=== PATIENT | female | born 1980 | race Two or more races ===

== ENCOUNTER 2025-04-22 08:37 | Outpatient (AMB) | payer OTHER, SELFPAY ==
[2025-04-22 08:55] VITALS: BP 110/67; PULSE 72; TEMP 36.8; O2SAT 98
--- NOTE | 2025-04-22 08:55 | GYNCLNT_ITS ---
Vital Signs 04/22/25 08:55 Height 1.68 m Height Method Stated Weight 84.538 kg Weight Measurement Method Standing Scale BMI 30.0 BP 110/67 Blood Pressure Source Automatic Cuff Blood Pressure Location Right Upper Arm Position Sitting Pulse 72 Pulse Source Monitor Temp 98.2 F Temp Source Temporal Artery Scan Pulse Oximetry (%) 98 Oxygen Delivery Method Room Air Allergies/Home Meds Allergies & Medications Allergies iodine Allergy (Unknown, Verified 04/22/25 08:56) Medication Reconciliation cholecalciferol (vitamin D3) 1,250 mcg (50,000 unit) capsule 1,250 mcg PO QWEEK 12 weeks #12 caps 03/21/24 [Rx Confirmed 04/22/25] Intake Visit Data Collection New Patient or Established: Established Patient (seen at [facility] within 3 years) Reason for Visit:: IRREGULAR MENSES Seen by Clinical Staff ONLY (RN/MA): No Occupational Therapy Program Director Required: No Do You Feel Safe at Home: Yes Authorities Contacted: N/A PCP or OBGYN visit in last 3 months: No Hx Now: No Are you currently on any form of Control: No Last menstrual period: 03/19/25 Pain Present Currently: No Pain Scale Used: Mahoney-Gardner/Numerical Pain scale:: 0 Smoking Status Smoking Status: Never smoker 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 Questionnaires Covid-19 Vaccine Questionnaire Has patient been vacinated for Covid-19 Have you been vacinated for Covid-19: Yes PHQ-9 PHQ-2 Over the last 2 weeks, how often have you been bothered by any of the following problems? 1. Little interest or pleasure in doing things: not at all 2. Feeling down, depressed, or hopeless: not at all Total score: 0 PHQ-9 3. Trouble falling or staying asleep, or sleeping too much: Not at all 4. Feeling tired or having little energy: Not at all 5. Poor appetite or overeating: Not at all 6. Feeling bad about yourself - or that you are a failure or have let yourself or your family down: Not at all 7. Trouble concentrating on things, such as reading the newspaper or watching television: Not at all 8. Moving or speaking so slowly that other people could have noticed? - Or the opposite - being so fidgety or restless that you have been moving around a lot more than usual: not at all 9. Thoughts that you would be better off or of hurting yourself in some way: Not at all Total score: 0 If you checked off any problems, how difficult have these problems made it for you to do your work, take care of things at home, or get along with other people?: not difficult at all Source: Developed by Drs. Figueroa Shrestha, Keiry Kirby, Jan Mcgee and colleagues, with an educational thomas from [employer]. Depression screen completed yes Social History Living Situation History Marital Status: Lives With: Family Housing: House Housing Other:: Has 3 girls age 25, 22, 15, and 13. Has 1 son age 20. 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 Tobacco History Smoking Status: Never smoker Second Hand Smoke Exposure: No Alcohol History Alcohol Intake: Current Alcohol Intake Frequency: holidays/special occasions only Substance Use History Substance Use: NONE Domestic Abuse History Do You Feel Safe at Home: Yes History of Present Illness HPI Narrative Patient is a very pleasant 44-year-old -0-0-[address] Rush Tyler in [place] for her gynecological care. She comes to me discussing irregular menses. She states she is having some hot flashes and night sweats she states her cycles can be 9 to 10 days long and, every [address] Tyler performed an ultrasound last year in 2023 and was going to perform an ablation when our office closed. She presents today to discuss options. She has had 5 vaginal deliveries and a tubal ligation in 2011. She has 4 girls and 1 boy. Her oldest daughter is 25 then she has a 22-year-old daughter 20-year-old son a 15-year-old daughter and the youngest is a 13-year-old daughter. 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 We did discuss abnormal bleeding. I would recommend an ultrasound and some lab work. She did bring some labs in with her that her primary care provider mary revealing a normal thyroid , a hemoglobin a little low at 10.4. HIV is negative GC chlamydia negative and the TSH was no normal .We did discuss options for dysfunctional uterine bleeding including low-dose control pills, an IUD or a NovaSure ablation. I told the patient an IUD would not be a bad option for her as she could be starting to become perimenopausal and if so the IUD can stay in place for up to 8 years and we could just replace estrogen. Patient was not aware this was an option for her and is leaning towards placement of a Mirena IUD. Review of Systems Review of Systems Narrative Review of Systems: Occasional hot flashes and night sweats. Abnormal uterine bleeding as above. No foul discharge. No pelvic pain no dyspareunia no urinary complaints last Pap was 2023 no history of abnormal Pap smears Exam General Limitations: no limitations General Appearance: alert, in no apparent distress, comfortable, cooperative, healthy appearing, well developed and well groomed Chest Chest inspection: Present normal inspection and symmetric chest wall rise Resp Respiratory exam: Present normal lung sounds bilaterally Card Cardiovascular exam: Present regular rate, normal rhythm and normal heart sounds Abdominal Abdominal exam: Present soft and normal bowel sounds Psych Psychiatric exam: Present normal affect and normal mood Skin Skin exam: Present warm, dry, intact and normal color Office Procedures OB Clinic LOC & Office Proc's Nursing/Assessment Patient Status: Established Patient OB Clinic Nursing Assessment: Medication Reconciliation, Update PMH in EMR and Vital Signs OB Clinic Coordination of Care: Complex Care and Chronic Disease 1-5, Consent,records obtained, informed consent, Education Simp Pt/Fam and Staff clarify orders Established Patient Charge Established Patient Point Assignment: 85 Established Patient Point Charge: EP Level 3 (80-115) Assessment & Plan Diagnosis / Problem List (1) DUB (dysfunctional uterine bleeding): Status: Acute Assessment and Plan: Check ultrasound. Check FSH and estradiol. Patient is interested in on a Mirena IUD. Will order Mirena IUD and call the patient for placement. (2) Anemia: Status: Acute Qualifiers: Anemia type: iron deficiency Iron deficiency anemia type: chronic blood loss Qualified Code(s): D50.0 - Iron deficiency anemia secondary to blood loss (chronic) Assessment and Plan: Patient is already taking iron replacement. She has heavy cycles. Once the IUD is in place they should lighten up and the problem should resolve. (3) Perimenopausal menorrhagia: Status: Acute Assessment and Plan: Patient is having hot flashes and night sweats and I ordered FSH and estradiol levels.
== END 2025-04-22 09:50 | disposition home or self-care (01) ==
LOC: HODSOBC 08:37
PROVIDERS: PCP Obstetrics & Gynecology; Referring Provider Obstetrics & Gynecology; Supervising Provider Obstetrics & Gynecology; Visit Provider Obstetrics & Gynecology
DX: N93.8 Other specified abnormal uterine and vaginal bleeding (principal); D64.9 Anemia, unspecified; N92.4 Excessive bleeding in the premenopausal period; R23.2 Flushing; R61 Generalized hyperhidrosis; Z98.51 Tubal ligation status
CPT/HCPCS: 99213; G0463

== ENCOUNTER → 2025-05-05 | Outpatient (CLI) | payer OTHER, SELFPAY ==
--- NOTE | 2025-05-05 12:00 | XR_ITS ---
Examination: Transvaginal ultrasound of the pelvis, complete Technique: Transvaginal sonographic images pelvis performed using nash scale imaging Exam date and time: May 05, 2025 1204 hours INDICATIONS: Heavy irregular vaginal bleeding beginning one year ago FINDINGS: Uterus 10.3 cm endometrial stripe 1.0 cm No uterine mass or intrauterine gestation Right ovary obscured by bowel gas Left ovary 3.7 cm arterial flow 15 mm follicular cyst IMPRESSION: No uterine mass or intrauterine gestation.
== END | disposition home or self-care (01) ==
LOC: CDIM 11:42
PROVIDERS: PCP Nurse Practitioner Family; Referring Provider Obstetrics & Gynecology; Visit Provider Obstetrics & Gynecology
DX: N83.02 Follicular cyst of left ovary (principal)
CPT/HCPCS: 76830

== ENCOUNTER 2025-05-26 09:49 | Emergency (ER) | payer OTHER, SELFPAY ==
[2025-05-26 09:50] VITALS: BMI 29.3
[2025-05-26 09:58] VITALS: BP 133/64; PULSE 82; RESP 20; TEMP 36.4; O2SAT 100
[2025-05-26] MEDS: KETOROLAC INJ 30 MG/ML VIAL 15 MG IVP (10:07)
[2025-05-26 10:16] LABS: Basophils # (Auto) 0.1 Thou/mm3 (0.0-0.2); Basophils % (Auto) 1 % (0-2.5); Eosinophils # (Auto) 0.4 Thou/mm3 (0.0-0.5); Eosinophils % (Auto) 3 % (0-10); Hematocrit 37.4 % (36.0-46.0); Hemoglobin 12.6 g/dL (12.0-16.0); Immature Granulocytes Auto 0.05 Thou/mm3 (0.00-0.00); Lymphocytes # (Auto) 2.9 Thou/mm3 (1.0-4.8); Lymphocytes % (Auto) 24 % (10-50); Mean Corpuscular HGB Conc 33.7 g/dl (31.0-37.0); Mean Corpuscular Hemoglobin 28.4 pg (25.0-35.0); Mean Corpuscular Volume 84 fL (80-100); Monocytes # (Auto) 1.1 Thou/mm3 (0.0-0.8); Monocytes % (Auto) 10 % (0-12); Neutrophils # (Auto) 7.3 Thou/mm3 (1.8-7.7); Neutrophils % (Auto) 62 % (37-80); Nucleated Red Blood Cell # 0.00 Thou/mm3 (0.00-0.00); Nucleated Red Blood Cell % 0 /100 WBC (0); Platelet Count 351 Thou/mm3 (140-440); RDW Standard Deviation 59.7 fL (36.4-46.3); Red Blood Count 4.44 Miln/mm3 (4.00-5.20); White Blood Count 11.9 Thou/mm3 (3.6-11.0)
--- NOTE | 2025-05-26 10:21 | EDNOTE_ITS ---
ED General RME/HPI General Chief complaint: Abdominal Pain Stated complaint: ABD PAIN; 08/21 Time Seen by Provider: 05/26/25 11:47 Arrival date/time: 05/26/25 09:49 RME / HPI RME / HPI narrative: see MDM Related Data Previous Rx's ?Medication ?Instructions ?Recorded cholecalciferol (vitamin D3) 1,250 1,250 mcg PO QWEEK 12 weeks #12 03/21/24 mcg (50,000 unit) capsule caps Allergies Allergy/AdvReac Type Severity Reaction Status Date / Time iodine Allergy Severe Anaphylaxis Verified 05/26/25 09:52 Review of Systems Review of Systems Systems Reviewed: All systems reviewed, normal except as documented ED Exam Narrative Physical exam: Physical Exam GENERAL: NAD, AAOx3 HEENT: Moist mucosa. Eyes open, symmetrical, & clear CARDIO: Heart RRR, no obvious murmurs PULM: No noted coughing/dyspnea CTA B/L, no R/W/R GI: Abdomen soft, nondistended, epigastric pain on palpation. BSx4 SKIN/MSK/EXT: No wounds/rashes/edema/amputations, no pain on palpation. Pedal pulses present B/L NEURO: AAOx3, no focal neuro deficits, able to move all 4 extremities Course Quality Measures none Orders Category Date Time Status Insert IV NOW Care 05/26/25 09:[address] abdomen pelvis wo con Stat Exams 05/26/25 10:23 Completed US pelvic complete Stat Exams 05/26/25 11:11 Completed CA 125 Stat Lab 05/26/25 12:28 Completed CA 19-9 Antigen* Stat Lab 05/26/25 12:28 Received CBC Stat Lab 05/26/25 10:04 Completed Comprehensive Metabolic Panel Stat Lab 05/26/25 10:04 Completed HCG Qualitative,Urine Stat Lab 05/26/25 12:20 Completed HCG,Qualitative Serum Stat Lab 05/26/25 10:04 Completed Lipase Stat Lab 05/26/25 10:04 Completed UA, C/S IF [Urinalysis, C/S if Indicated] Stat Lab 05/26/25 12:20 Completed Ketorolac Inj [Toradol Inj] Med 05/26/25 09:57 Discontinued 15 mg IVP X1 ONE Ondansetron Inj [Zofran Inj] Med 05/26/25 10:23 Discontinued 4 mg IVP Q4HR PRN Vital Signs Vital signs: Vital Signs Temperature 97.5 F 05/26/25 09:58 Pulse Rate 82 05/26/25 09:58 Respiratory Rate 20 05/26/25 09:58 Blood Pressure 133/64 H 05/26/25 09:58 Pulse Oximetry (%) 100 05/26/25 09:58 Oxygen Delivery Method Room Air 05/26/25 09:58 Discharge Plan Plan Patient Disposition: HOME (Self Care) Prescriptions/Referrals Prescriptions/Med Rec: No Action cholecalciferol (vitamin D3) 1,250 mcg (50,000 unit) capsule 1,250 mcg PO QWEEK 84 Days Qty: 12 1RF Referrals: Debi Aggarwal FNP [Primary Care Provider] - In 1 week Problem List Clinical Impression: Ovarian cyst rupture Patient/Caregiver Discharge Instructions Additional Instructions: Follow up with primary care physician within 1 week of discharge in regards to your CA 19?9, CA125 Follow up with CERTIFIED OPHTHALMIC TECHNOLOGIST within 2 weeks of discharge with regards to your ovarian cyst and ahve possible transvaginal US Should any symptoms recur or worsen patient is instructed to return to the ED. Print Language: Setswana Stand Alone Forms: [employer] Award Info., Patient Portal Info Letter MDM Narrative MDM hospital course: 44 y/o F with PMHx of menorrhagia, cholecystectomy, tubal ligation presented to the ED due to sudden onset abdominal pain. Patient states she was working out and suddenly developed 10/10 pain. She states shes had previous symptoms like this before and was told she had twisted bowels in the past. Last BM was 05/25/2025. Today she also endorses nausea but no vomiting as well as chills. Denies fever, shortness of breath, chest pain, palpitations. 1047: CBC shows mild leukocytosis, CMP unremarkable except for mild AST elevation, CT shows free fluid in the abdomen likely secondary to ovarian cyst, pelvic ultrasound showed ruptured ovarian cyst Patient symptoms have resolved. Patient at this time is safe to be discharged from the ER with strict return precautions. Patient instructed to follow-up with her primary care physician within 1 week of discharge. Patient instructed to follow-up with her CERTIFIED OPHTHALMIC TECHNOLOGIST in regards to her ovarian cyst. Should any symptoms recur or worsen patient is instructed to return to the ER. Clinical Information Provided by patient and EMS Medical Records Reviewed [facility] Chronic Illness/Social Conditions which may negatively complicate care or outcome(s)-explain: None or not applicable Medication Administration(s) Medication Administration History Discontinued Medications Ketorolac Tromethamine (Ketorolac Inj 30 Mg/Ml Vial) 15 mg IVP X1 ONE Stop: 05/26/25 09:58 Last Admin: 05/26/25 10:07 Dose: 15 mg Documented By: AMANDA Ondansetron HCl (Ondansetron Inj 2 Mg/Ml Inj 2 Ml) 4 mg IVP Q4HR PRN; Protocol PRN Reason: NAUSEA OR VOMITING Stop: 06/25/25 10:22
--- NOTE | 2025-05-26 10:23 | XR_ITS ---
Examination: CT abdomen and pelvis without contrast. Coronal 3-D reconstructions. Sagittal 2-D reconstructions. Date and time of exam:May 26, 2025 1040 hours INDICATIONS: Generalized abdominal pain today, history bowel obstruction CTDI: vol (mGy): 10.6 DLP: (mGycm): 604 Technique: Axial images of the abdomen have been obtained, 3 mm slice thickness Intravenous contrast material has not been administered. Low dose protocols were performed. One or more of the following dose reduction techniques were used; automated exposure control, adjustment of the mA and/or KV according to patient size, use of iterative reconstruction technique. Findings: No focal liver or splenic lesion Absent gallbladder No pancreatic mass. No renal or ureteral calculi, no hydronephrosis Normal appendix Minimal fluid adjacent to the cecum which is probably around the right ovary The right ovary is prominent with possible 25 mm right ovarian follicular cyst There is mild to moderate free fluid in the pelvis No uterine mass Bladder intact Moderate disc narrowing L5-S1 IMPRESSION: No renal or ureteral calculi, no hydronephrosis No bowel obstruction Normal appendix Enlarged right ovary with possible 25 mm right ovarian follicular cyst, mild to moderate free fluid in the pelvis, recommend pelvic sonography follow-up
[2025-05-26 10:30] LABS: Alanine Aminotransferase 31 U/L (10-49); Albumin, Serum 4.7 gm/dL (3.5-5.0); Albumin/Globulin Ratio 1.9 (1.2-2.2); Alkaline Phosphatase 60 U/L (46-116); Anion Gap 11 (7-16); Aspartate Amino Transferase 37 U/L (0-34); BUN/Creatinine Ratio 18 Ratio (12-20); Bilirubin,Total 0.7 mg/dL (0.3-1.2); Blood Urea Nitrogen 18 mg/dL (9-23); Calcium 9.9 mg/dL (8.3-10.6); Calcium (Corrected) 9.9 mg/dL (8.5-10.1); Carbon Dioxide 25.2 mMol/L (20.0-31.0); Chloride 102 mMol/L (98-107); Creatinine (Component) 1.0 mg/dL (0.6-1.3); Estimated Creatinine Clearance 79.4 mL/min (>60); Globulin 2.5 gm/dL (2.3-3.5); Glucose 102 mg/dL (74-106); Lipase 31 U/L (12-53); Osmolality,Calculated 277 (275-295); Potassium 3.9 mMol/L (3.4-5.1); Sodium 138 mMol/L (136-145); Total Protein 7.2 gm/dL (5.7-8.2); eGFR > 60 See Note
[2025-05-26 10:56] LABS: HCG,Qualitative Serum Negative
--- NOTE | 2025-05-26 11:11 | XR_ITS ---
Examination: Pelvic ultrasound, transabdominal, complete Technique: Transabdominal ultrasound of the pelvis performed using grayscale imaging Date and time of exam: May 26, 2025 1143 hours Comparison May 05, 2025 INDICATIONS: Pelvic pain today, enlarged right ovary with [address] pelvis study today FINDINGS: Uterus 8.7 cm endometrial stripe 1.1 cm No uterine mass or intrauterine gestation Right ovary 4.1 cm arterial flow Vascular right ovarian mass 2.9 x 2.9 x 2.1 cm which may represent a ruptured cyst Adjacent right ovarian cyst 2.0 x 1.0 x 1.7 cm Left ovary 3.0 cm arterial flow IMPRESSION: Findings most consistent with right ovarian ruptured cyst 2.9 x 2.9 x 2.1 cm, differential would include ectopic in the appropriate clinical setting Recommend one week follow-up transvaginal transabdominal pelvic sonography
[2025-05-26 12:09] VITALS: BP 124/62; PULSE 70; RESP 20; TEMP 36.6; O2SAT 100
[2025-05-26 12:39] LABS: Collection Type, Urine Clean Catch
[2025-05-26 13:26] LABS: HCG Qualitative,Urine Negative
[2025-05-26 13:27] LABS: CA 125 9.0 U/mL (<30.2)
[2025-05-26 13:37] LABS: Bacteria,Urine Rare; Bilirubin,Urine Negative (Negative); Blood,Urine Negative (Negative); Clarity,Urine Clear (Clear/Hazy); Color,Urine Colorless (Lt Yel-Yel); Culture Indicated,Urine Not Indicated; Glucose, Urine Negative (Negative); Ketones,Urine Negative (Negative); Leukocyte Esterase,Urine Negative (Negative); Nitrite,Urine Negative (Negative); PH,Urine 7.0 (5.0-7.0); Protein,Urine Negative (Neg - Trace); RBC,Urine 1 /hpf (0-3); Specific Gravity,Urine 1.011 (1.001-1.035); Squamous Epithelial Cell,Urine 1 /hpf (0-5); Urobilinogen,Urine Negative mg/dL (0.0-1.0); WBC,Urine < 1 /hpf (0-5)
[2025-06-01 08:13] LABS: CA 19-9 Antigen* 6 U/mL (<34)
== END 2025-05-26 14:56 | disposition home or self-care (01) ==
PROVIDERS: Nurse Practitioner Primary Care; Emergency Provider Student in an Organized Health Care Education/Training Program; PCP Nurse Practitioner Family
DX: N83.01 Follicular cyst of right ovary (principal)
CPT/HCPCS: 36415; 74176; 76856; 80053; 81001; 81025; 83690; 84703; 85025; 86301; 86304; 96374; 99284; J1885

== ENCOUNTER → 2025-05-28 | Outpatient (CLI) | payer OTHER, SELFPAY ==
--- NOTE | 2025-05-28 16:00 | XR_ITS ---
Examination: MRI pelvis with intravenous contrast. MRI pelvis without intravenous contrast. Date and time of exam: May 28, 2025 1949 hours INDICATIONS: Onset pelvic pain this week, ruptured right ovarian cyst 2.9 x 2.9 x 2.1 cm on pelvic sonogram May 26, 2025 Technique: Multiple axial, sagittal and coronal sections of the pelvis obtained. Transverse images, TR 6020, TE 107. T1 weighted transverse images, TR 582, TE 9.5. T2-weighted sagittal images, TR 4000, TE 105. T2-weighted sagittal images, TR 4000, TE 5. Coronal images, TR 4210, TE 107. Axial and coronal images are obtained post 16 cc intravenous injection, gadolinium. Findings: Anteverted uterus, 10 x 5.4 x 5.2 cm Endometrial stripe 10 mm Uterine fundal mass nonenhancing 19 x 12 mm Benign cervical cysts Right ovary 2.0 x 1.8 cm, free fluid adjacent to the right ovary and in the cul-de-sac Left ovary 2.8 x 2.2 cm No pelvic lymphadenopathy Homogeneous marrow signal IMPRESSION: Nonenhancing uterine fundal mass 19 x 12 mm, likely fibroid degeneration, recommend 6 month follow up transvaginal pelvic sonography Free fluid adjacent to the right ovary and in the cul-de-sac, mild, consistent with the patient's history of right ruptured ovarian cyst No current ovarian cyst
== END | disposition home or self-care (01) ==
PROVIDERS: PCP Obstetrics & Gynecology; Referring Provider Obstetrics & Gynecology; Visit Provider Obstetrics & Gynecology
DX: N83.8 Other noninflammatory disorders of ovary, fallopian tube and broad ligament (principal)
CPT/HCPCS: 72197; A9579

== ENCOUNTER 2025-06-08 14:47 | Outpatient (AMB) | payer OTHER, SELFPAY ==
[2025-06-08 15:13] VITALS: BP 109/65; PULSE 60; RESP 14; TEMP 36.8; O2SAT 98; BMI 29.7
--- NOTE | 2025-06-08 15:13 | GYNCLNT_ITS ---
Vital Signs 06/08/25 15:13 Height 1.68 m Height Method Stated Weight 83.631 kg Weight Measurement Method Standing Scale BMI 29.7 BP 109/65 Blood Pressure Source Automatic Cuff Blood Pressure Location Left Upper Arm Position Sitting Respiration 14 Pulse 60 Pulse Source Monitor Temp 98.3 F Temp Source Oral Pulse Oximetry (%) 98 Oxygen Delivery Method Room Air Allergies/Home Meds Allergies & Medications Allergies iodine Allergy (Severe, Verified 06/08/25 15:14) Anaphylaxis Intake Visit Data Collection New Patient or Established: Established Patient (seen at [facility] within 3 years) Reason for Visit:: IUD INSERTION Seen by Clinical Staff ONLY (RN/MA): No Automation Operator Required: No Do You Feel Safe at Home: Yes Authorities Contacted: N/A PCP or OBGYN visit in last 3 months: Yes Hx Now: No Are you currently on any form of Control: No Last menstrual period: 06/01/25 Pain Present Currently: No Pain Scale Used: Mahoney-Gardner/Numerical Pain scale:: 0 Smoking Status Smoking Status: Never smoker 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 1. Little interest or pleasure in doing things: not at all 2. Feeling down, depressed, or hopeless: not at all Total score: 0 PHQ-9 3. Trouble falling or staying asleep, or sleeping too much: Not at all 4. Feeling tired or having little energy: Not at all 5. Poor appetite or overeating: Not at all 6. Feeling bad about yourself - or that you are a failure or have let yourself or your family down: Not at all 7. Trouble concentrating on things, such as reading the newspaper or watching television: Not at all 8. Moving or speaking so slowly that other people could have noticed? - Or the opposite - being so fidgety or restless that you have been moving around a lot more than usual: not at all 9. Thoughts that you would be better off or of hurting yourself in some way: Not at all Total score: 0 Source: Developed by Drs. Figueroa Shrestha, Keiry Kirby, Jan Mcgee and colleagues, with an educational thomas from [employer]. Depression screen completed yes Social History Living Situation History Lives With: Family Housing: House Housing Other:: Has 3 girls age 25, 22, 15, and 13. Has 1 son age 20. 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 Tobacco History Smoking Status: Never smoker Second Hand Smoke Exposure: No Alcohol History Alcohol Intake: Current Alcohol Intake Frequency: holidays/special occasions only Substance Use History Substance Use: NONE Domestic Abuse History Do You Feel Safe at Home: Yes History of Present Illness HPI Narrative The patient is a 44-year-old -0-0-4 presents for a Mirena IUD insertion for heavy bleeding. 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 She read all her information and did sign a consent. She understands the risk of an IUD insertion including the risk of bleeding, infection ,uterine perforation and expulsion. She understands that if perforation occurs, and the IUD is located in her abdominal cavity, and a that we will have to perform a laparoscopy in order to r remove it. She has had a tubal ligation for contraception and the IUD is for cycle control. She has had a history of a tubal ligation in 2011 and a gallbladder removal in 2010. Last menstrual period was 06/01/2025.A test is negative in the office today. Patient is . Of note she had a normal pelvic ultrasound from 05/26/2025 her uterus was normal size with no fibroids present. She went to the ER with upper abdominal pain and thought she was having a bowel obstruction. They thought she might have ruptured a cyst. Patient states she had no pelvic p ain. She had a little bit of free fluid in her abdomen from that US. The ultrasound revealed no significant adnexal masses or cyst. No fibroids in the uterus. Exam General Limitations: no limitations General Appearance: alert, in no apparent distress, cooperative, healthy appearing and well groomed External exam: Present normal external exam Speculum exam: Present normal speculum exam Bimanual exam: Present normal bimanual exam (Uterus is anteverted. No tenderness or adnexal masses.) Office Procedures OB Clinic LOC & Office Proc's Nursing/Assessment Patient Status: Established Patient OB Clinic Nursing Assessment: Medication Reconciliation, Update PMH in EMR and Vital Signs OB Clinic Coordination of Care: Complex Care and Chronic Disease 1-5, Consent,records obtained, informed consent, Education Simp Pt/Fam, Lab and Imaging orders, Results/Orders obtained and Staff clarify orders Miscellaneous Interventions: Pelvic no cultures Established Patient Charge Established Patient Point Assignment: 115 In Clinic Procedures Minor Surgical Procedure: Yes INSERTION OF ANY IUD DEVICE: Yes (LOT# [id number] EXPIRATION S/N [id number]) Assessment & Plan Diagnosis / Problem List (1) Encounter for insertion of Mirena IUD: Status: Acute Assessment and Plan: Mirena IUD was successfully placed today. Patient was told to refrain from intercourse and tampon use for 2 weeks. She should follow-up then for string check. BACK OFFICE MEDICAL ASSISTANT: BC insert/removal Procedure Notes Consent obtained: yes-written and risks discussed Pre-op diagnosis general: Menorrhagia, desires Mirena IUD for management Post-op diagnosis procedure note: Same IUD type inserted: Mirena IUD Lot and Exp: Lot#: [id number] Expiration date: March 2027 Procedure Notes:: After obtaining written informed consent for the risk of an IUD insertion, including the risk of bleeding, infection, expulsion, or perforation, the patient was placed in the dorsal lithotomy position. A pelvic exam was performed revealing an anteverted uterus normal size with no adnexal masses. A speculum exam was then performed. The cervix was then prepped with Betadine and a single-tooth tenaculum was placed at the 12 o'clock position. The uterus sounded to 8 cm and a Mirena IUD was inserted to the fundus of the uterus without difficulty. The IUD strings were kept long. The tenaculum was then removed and some pressure placed on the cervix to prevent any extra bleeding. All instrumentation was then removed from the patient's vagina. The patient tolerated the procedure well and did not have any significant pain during insertion. She was told to refrain from intercourse and tampon use for 2 weeks post insertion. She will follow-up then for string check.
== END 2025-06-08 15:55 | disposition home or self-care (01) ==
LOC: HODSOBC 14:47
PROVIDERS: PCP Nurse Practitioner Family; Referring Provider Nurse Practitioner Family; Supervising Provider Obstetrics & Gynecology; Visit Provider Obstetrics & Gynecology
DX: Z30.430 Encounter for insertion of intrauterine contraceptive device (principal); N92.0 Excessive and frequent menstruation with regular cycle; Z98.51 Tubal ligation status; Z90.49 Acquired absence of other specified parts of digestive tract
CPT/HCPCS: 58300; J7298; J7301

== ENCOUNTER 2025-06-24 08:31 | Outpatient (AMB) | payer OTHER, SELFPAY ==
[2025-06-24 08:52] VITALS: BP 103/62; PULSE 73; RESP 14; TEMP 36.9; O2SAT 98; BMI 29.8
--- NOTE | 2025-06-24 08:52 | GYNCLNT_ITS ---
Vital Signs 06/24/25 08:52 Height 1.68 m Height Method Stated Weight 84.141 kg Weight Measurement Method Standing Scale BMI 29.8 BP 103/62 Blood Pressure Source Automatic Cuff Blood Pressure Location Left Upper Arm Position Sitting Respiration 14 Pulse 73 Pulse Source Monitor Temp 98.4 F Temp Source Oral Pulse Oximetry (%) 98 Oxygen Delivery Method Room Air Allergies/Home Meds Allergies & Medications Allergies iodine Allergy (Severe, Verified 06/24/25 08:53) Anaphylaxis Medication Reconciliation mupirocin 2 % topical ointment 1 applic topical BID #22 grams 06/19/25 [Rx Confirmed 06/24/25] sulfamethoxazole 800 mg-trimethoprim 160 mg tablet (Bactrim DS) 1 tab PO BID 7 days #14 tabs 06/19/25 [Rx Confirmed 06/24/25] Intake Visit Data Collection New Patient or Established: Established Patient (seen at [facility] within 3 years) Reason for Visit:: IUD CHECK Seen by Clinical Staff ONLY (RN/MA): No 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 Do You Feel Safe at Home: Yes Authorities Contacted: N/A PCP or OBGYN visit in last 3 months: Yes Hx Now: No Are you currently on any form of Control: Yes Last menstrual period: 06/01/25 Pain Present Currently: No Pain Scale Used: Mahoney-Gardner/Numerical Pain scale:: 0 Smoking Status Smoking Status: Never smoker 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 1. Little interest or pleasure in doing things: not at all 2. Feeling down, depressed, or hopeless: not at all Total score: 0 PHQ-9 3. Trouble falling or staying asleep, or sleeping too much: Not at all 4. Feeling tired or having little energy: Not at all 5. Poor appetite or overeating: Not at all 6. Feeling bad about yourself - or that you are a failure or have let yourself or your family down: Not at all 7. Trouble concentrating on things, such as reading the newspaper or watching television: Not at all 8. Moving or speaking so slowly that other people could have noticed? - Or the opposite - being so fidgety or restless that you have been moving around a lot more than usual: not at all 9. Thoughts that you would be better off or of hurting yourself in some way: Not at all Total score: 0 Source: Developed by Drs. Figueroa Shrestha, Keiry Kirby, Jan Mcgee and colleagues, with an educational thomas from [employer]. Depression screen completed yes Social History Living Situation History Lives With: Family Housing: House Housing Other:: Has 4 girls age 25, 22, 15, and 13. Has 1 son age 20. 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 Tobacco History Smoking Status: Never smoker Second Hand Smoke Exposure: No Alcohol History Alcohol Intake: Current Alcohol Intake Frequency: holidays/special occasions only Substance Use History Substance Use: NONE Domestic Abuse History Do You Feel Safe at Home: Yes History of Present Illness HPI Narrative The patient is a 44-year-old G5, P5 here for IUD check. She states her Mirena is not causing any trouble. She hardly had any cramping after placement. She is only had spotting since I placed this on 06/08/2025. Exam Narrative Physical exam: Speculum exam reveals IUD strings in place only half an inch outside her ectocervical os. Some clearish serosanguineous blood noted. General Limitations: no limitations General Appearance: alert, in no apparent distress, cooperative, healthy appearing and well groomed Office Procedures OB Clinic LOC & Office Proc's Nursing/Assessment Patient Status: Established Patient OB Clinic Nursing Assessment: Medication Reconciliation, Update PMH in EMR and Vital Signs OB Clinic Coordination of Care: Complex Care and Chronic Disease 1-5, Consent,records obtained, informed consent, Education Simp Pt/Fam, Results/Orders obtained and Staff clarify orders Miscellaneous Interventions: Pelvic no cultures Established Patient Charge Established Patient Point Assignment: 100 Established Patient Point Charge: EP Level 3 (80-115) Assessment & Plan Diagnosis / Problem List (1) IUD check up: Status: Acute Plan: Mirena IUD in place. Patient was told she can use this for intercourse. It is okay to use tampons and swim. She go back to all normal activities. She will follow-up in 1 year or as needed. Additional Plan Follow Up: 1 Year
== END 2025-06-24 08:58 | disposition home or self-care (01) ==
LOC: HODSOBC 08:31
PROVIDERS: PCP Nurse Practitioner Family; Referring Provider Nurse Practitioner Family; Supervising Provider Obstetrics & Gynecology; Visit Provider Obstetrics & Gynecology
DX: Z30.431 Encounter for routine checking of intrauterine contraceptive device (principal)
CPT/HCPCS: 99213; G0463

== ENCOUNTER → 2025-08-06 | Outpatient (CLI) | payer OTHER, SELFPAY ==
--- NOTE | 2025-08-06 07:15 | XR_ITS ---
Examination: Ultrasound soft tissue left axilla Technique: Grayscale sonographic images soft tissue left axilla Date and time: August 06, 2025, 0749 hrs. Indications: Left axillary swelling and pain beginning several weeks ago Findings: Multiple lymph nodes in the left axilla, 9 x 6 mm, 18 x 10 mm, 16 x 8 mm Impression: Multiple left axillary lymph nodes, clinical correlation advised Consider CT chest post intravenous contrast follow-up
== END | disposition home or self-care (01) ==
LOC: CDIM 07:25
PROVIDERS: Referring Provider Nurse Practitioner Family; Visit Provider Nurse Practitioner Family
DX: N63.32 Unspecified lump in axillary tail of the left breast (principal)
CPT/HCPCS: 76882

== ENCOUNTER → 2025-08-11 | Outpatient (CLI) | payer OTHER, SELFPAY ==
--- NOTE | 2025-08-11 | XR_ITS ---
Examination: Screening digital mammography, bilateral Computer aided detection 3-D breast Tomosynthesis, bilateral Date and time of exam: August 11, 2025, 2031 hours, compared to mammograms dating to January 29, 2022 Indication: Screening Technique: Nonmagnified MLO, CC views of the breasts to been obtained, reconstructed from 3-D Tomosynthesis images. R2 computer aided detection program utilized for evaluation of suspicious masses and/or abnormal calcifications. 3-D Tomosynthesis images obtained. Findings: The breasts are heterogeneously dense, which may obscure small masses 12 mm nodule 12:00 position left breast Impression: BI-RADS Category 0: Incomplete: Need additional imaging evaluation Recommend follow-up spot tomographic views of 12 mm nodule 12:00 position left breast as well as left breast sonography to complete the workup.
--- NOTE | 2025-08-11 07:45 | XR_ITS ---
Examination: Transvaginal ultrasound of the pelvis, complete Technique: Transvaginal sonographic images pelvis performed using nash scale imaging Exam date and time: August 11, 2025, 0800 hours. INDICATIONS: Vaginal bleeding post intrauterine device insertion June 24, 2025 FINDINGS: Uterus 10.3 cm, intrauterine device noted near the fundal endometrium Posterior fundal mass 18 x 13 x 19 mm Endometrial stripe 12 mm Right ovary 3.5 cm arterial flow 18 x 18 mm cyst Left ovary 4.5 cm arterial flow, 36 mm cyst IMPRESSION: Intrauterine device The fundal endometrium Small posterior uterine fundal mass, likely fibroid degeneration 18 x 13 x 19 mm 3.6 cm left ovarian cyst
== END | disposition home or self-care (01) ==
PROVIDERS: PCP Nurse Practitioner Family; Referring Provider Obstetrics & Gynecology; Visit Provider Obstetrics & Gynecology
DX: Z12.31 Encounter for screening mammogram for malignant neoplasm of breast (principal); N63.25 Unspecified lump in the left breast, overlapping quadrants; R19.00 Intra-abdominal and pelvic swelling, mass and lump, unspecified site; N83.202 Unspecified ovarian cyst, left side; Z30.431 Encounter for routine checking of intrauterine contraceptive device
CPT/HCPCS: 76830; 77063; 77067